=== PATIENT | female | born 1960 | race Caucasian/White ===

== ENCOUNTER → 2017-03-03 | Outpatient (CLI) | payer BC ==
--- NOTE | 2017-03-03 12:53 | CARD ---
APPROVED REPORT EXAM: Two-dimensional and M-mode echocardiogram with Doppler and color Doppler. Other Information Quality : Average Rhythm : NSR INDICATION Murmur 2D DIMENSIONS RVDd2.7 (2.9-3.5cm)Left Atrium(2D)2.7 (1.6-4.0cm) IVSd0.8 (0.7-1.1cm)Aortic Root(2D)2.5 (2.0-3.7cm) LVDd3.6 (3.9-5.9cm)LVOT Diameter2.0 (1.8-2.4cm) PWd0.8 (0.7-1.1cm)LVDs2.6 (2.5-4.0cm) FS (%) 28.2 %SV30.9 ml LVEF(%)55.4 (>50%) Aortic Valve AoV Peak Gerald.108.6cm/sAoV VTI21.3cm AO Peak GR.4.7mmHgLVOT Peak Gerald.84.8cm/s AO Mean GR.3mmHgAVA (VMAX)2.51cm2 Mitral Valve MV E Zebgzlgu66.6cm/sMV E Peak Gr.4mmHg MV DECEL [id number] A Szpqeeey67.3cm/s MV E Mean Gr.2mmHgMV [id number] E/A Ratio1.0MV A Mivlkfca66lc MVA (PHT)5.19cm2 Tricuspid Valve TR P. Ffucdtxc466hg/sRAP KSAICNYH1fnMh TR Peak Gr.60abYoCSBC21icXz Pulmonary Vein S1 Mszbztjh01.6cm/sD2 Sedveyab32.3cm/s LEFT VENTRICLE The left ventricle is normal size. There is normal left ventricular wall thickness. Left ventricle sy stolic function is normal. The Ejection Fraction is 55-60%. There is normal LV segmental wall motion. The left ventricular diastolic function and filling is normal for age. There is no ventricular septa l defect visualized. RIGHT VENTRICLE The right ventricle is normal size. The right ventricular systolic function is normal. ATRIA The left atrium size is normal. The right atrium size is normal. The interatrial septum is intact wit h no evidence for an atrial septal defect or patent foramen ovale as noted on 2-D or Doppler imaging. AORTIC VALVE The aortic valve is normal in structure and function. The aortic valve is trileaflet. Doppler and Col or Flow revealed no significant aortic regurgitation. There is no significant aortic valvular stenosi s. MITRAL VALVE The mitral valve leaflets are thickened. There is no mitral valve stenosis. Doppler and Color Flow re vealed no mitral valve regurgitation noted. TRICUSPID VALVE The tricuspid valve is normal in structure and function. Doppler and Color Flow revealed mild tricusp id regurgitation. The PA pressure was estimated at 30 mmHg. There is no tricuspid valve stenosis. PULMONIC VALVE The pulmonic valve is not well visualized. Doppler and Color Flow revealed no pulmonic valvular regur gitation. There is no pulmonic valvular stenosis. GREAT VESSELS The aortic root is normal in size. Normal pulmonary venous flow (Doppler). The IVC is normal in size and collapses <50% with inspiration. PERICARDIAL EFFUSION There is no evidence of significant pericardial effusion. Critical Notification Critical Value: No <Conclusion> Left ventricle systolic function is normal. The Ejection Fraction is 55-60%. There is normal LV segmental wall motion. Doppler and Color Flow revealed mild tricuspid regurgitation. The PA pressure was estimated at 30 mmH g.
--- NOTE | 2017-03-03 13:15 | RAD ---
APPROVED REPORT Test Type: Exercise Stress Nurse/Tech: Ezekiel Shannon R.N. Test Indications: Dyspnea on Exertion Cardiac History: see ehr Medications: see ehr Medical History: see ehr Resting ECG: SR Resting Heart Rate: 69 bpm Resting Blood Pressure: 121/83mmHg Pretest Chest Pain: None Nurse/Tech Notes Lungs CTA, S1, S2 Consent: The procedure was explained to the patient in lay terms. Informed consent was witnessed. Christopher eout was entered into [employer]. History and Stress Test performed by Ezekiel Shannon R.N. Pharm. Details Pharmacologic stress testing was performed using 0.4mg per 5ml of regadenoson given intravenously ove r 7-10 seconds. Stress Symptoms No chest pain or symptoms. POST EXERCISE Reason for Termination: Infusion complete Target HR: Yes Max HR: 140 bpm 100% of Maximum Predicted HR: 139 bpm Exercise duration: 8:25 min:sec, 3 Stage Exercise capacity: 10.0METs Max Blood Pressure: 194/91mmHg Blood Pressure response to exercise: Normal blood pressure response during stress. Chest Pain: No. Arrhythmia: No. ST Change: No. INTERPRETATION Stress EKG Conclusion: No acute changes were noted. Imaging Protocol IMAGE PROTOCOL: Rest Tc-99m/stress Tc-99m 1 day Rest: Stress: Viability: Radiopharm.Tc99m LwharedexAx99q Sestamibi Dose10.6mCi 34.8mCi Duration 15min. 10min. Img Date 03/03/2017 03/03/2017 Inj-Img Yixp31mev. 60min. Rest Admin Site:IV - Right AntecubitalAdministrator:ZOLTAN Betts Stress Admin Site: IV - Right AntecubitalAdministrator: Tracy Grant RT (R)(N) STRESS DATA End Diast. Vol.68.0mlAv. Heart Rate91.0bpm End Syst. Vol.12.0mlCO Index BSA0.0L/min Myocardial Azew693.0gEject. Urnperiy63.0% Stress Rates Pk. Fill Rate3.85EDV/secLVtime Pk. Fill 169.65msec Pk. Empty Rate4.41ESV/secLVtime Pk. Gkzrm929.32msec 08/17 Pk. Fill1.14EDV/sec Stress Scores Regional WT0.00Summed WT1.00 Regional WM0.00Summed WM0.00 The rest and stress images show normal perfusion, normal contraction and thickening. LV Perf. Quant 17 Seg. SSS0.00 17 Seg. SRS0.00 17 Seg. SDS0.00 Stress Defect Extent (% LAD)0.00Rest Defect Extent (% LAD)0.00Rev. Defect Extent (% LAD)0.00 Stress Defect Extent (% LCX) 0.00Rest Defect Extent (% LCX)0.00Rev. Defect Extent (% LCX)0.00 Stress Defect Extent (% RCA)0.00Rest Defect Extent (% RCA)0.00Rev. Defect Extent (% RCA)0.00 Stress Defect Extent (% KODI)0.00Rest Defect Extent (% KODI)0.00Rev. Defect Extent (% KODI)0.00 Other Information Quality:Good Risk Assessment: Low Risk Conclusion 1. No evidence of stress induced EKG changes. Average exercise capacity at 10.0 Mets 2. Normal perfusion at stress/rest. 3. Low risk study. EF > 70%
== END | disposition home or self-care (01) ==
LOC: NM 08:02
PROVIDERS: ATTEND Internal Medicine Cardiovascular Disease
DX: I07.1 Rheumatic tricuspid insufficiency (principal)
CPT/HCPCS: 78452; 93017; 93306; 96374; 96376; A9500

== ENCOUNTER → 2018-06-19 | Outpatient (CLI) | payer BC ==
[~2018-06-19] MED LIST: ALPR0.5T6 PO; ATOR20TA58 PO; CARV12.52 PO; GADOBUTROL 7.5 MMOL/7.5 ML VIAL IV ONE; HYDR12.58 PO; POLY17PO29 PO; PROAIR HFA8.5 GM INH
--- NOTE | 2018-06-19 15:50 | KCIC ---
MRI of the Brain without and with Contrast 06/19/2018 Clinical History: Frequent falls. Dizziness. Balance difficulty the last 3 weeks. Technique: Unenhanced T1-weighted sagittal and axial and FLAIR, T2-weighted, gradient echo and diffusion-weighted axial images of the brain were obtained. After the intravenous administration of 7 cc of Gadavist, enhanced T1-weighted axial and coronal images of the brain were obtained. Findings: No previous studies are available for comparison. The ventricles and sulci are within normal limits in size and configuration. Several small scattered areas of increased signal intensity are seen within the periventricular and subcortical white matter of both cerebral hemispheres on the FLAIR and T2-weighted images consistent most likely with areas of minimal small vessel ischemic disease. An old area of infarction is seen involving right superior cerebellar hemisphere. This measures 9 mm in greatest diameter. No acute parenchymal abnormality is seen. There is no MRI evidence of acute ischemia/infarction. No extra-axial fluid collection is seen. No area of abnormal contrast enhancement is noted. Mild mucosal thickening is seen scattered throughout the paranasal sinuses. Normal flow voids are seen within the major vascular structures surrounding the brain parenchyma. IMPRESSION: No acute parenchymal abnormality is seen. Electronically signed by: Laron Webster MD (06/19/2018 3:47 PM) [facility]
== END | disposition home or self-care (01) ==
LOC: KCIC MRI 12:02
PROVIDERS: ATTEND Nurse Practitioner Gerontology
DX: R29.6 Repeated falls (principal); I10 Essential (primary) hypertension; Z87.891 Personal history of nicotine dependence
CPT/HCPCS: 70553; A9585

== ENCOUNTER → 2018-07-03 | Outpatient (CLI) | payer BC ==
[~2018-07-03] MED LIST changes: -GADOBUTROL 7.5 MMOL/7.5 ML VIAL IV ONE
--- NOTE | 2018-07-03 15:35 | KCIC ---
MR of the right shoulder Indication: Right shoulder pain, decreased range of motion, lifting at work.. Technique: Standard multiplanar sequences are obtained. Findings: Artifact: Mild motion degradation but exam is diagnostic. Acromioclavicular joint: Mildly degenerative. No significant mass effect. Rotator cuff: * Supraspinatus-infraspinatus tendon: Intact * Subscapularis tendon: Intact * Muscle bulk: Within normal limits * Subacromial subdeltoid bursa: No significant effusion. Fluid: No significant glenohumeral effusion. Glenohumeral cartilage: No acute defect or advanced DJD. Labrum: No evidence of labral detachment. Biceps tendon: Intact Bones: No lesion or acute fracture. Soft tissue: Mild soft tissue edema at the posterior shoulder, mild intramuscular edema within the teres minor, particularly along the myotendinous junction. Impression: 1. Strain or contusion of the teres minor muscle along the myotendinous junction. 2. No evidence of rotator cuff tear. Electronically signed by: Ok Petit MD (07/03/2018 3:32 PM) [facility]
== END | disposition home or self-care (01) ==
LOC: KCIC MRI 13:36
PROVIDERS: ATTEND Family Medicine
DX: M19.011 Primary osteoarthritis, right shoulder (principal)
CPT/HCPCS: 73221

== ENCOUNTER → 2020-01-24 | Outpatient (CLI) | payer BC ==
[~2020-01-24] MED LIST changes: +ALBU2.5V8 INH; +CARV12.511 PO; -CARV12.52 PO; -PROAIR HFA8.5 GM INH
--- NOTE | 2020-01-24 15:54 | RAD ---
MRI Brain without contrast History:Left-sided facial droop Technique: Multiplanar, multisequential noncontrast MR imaging was performed of the brain. Comparison: None Findings: There is no evidence of recent infarct or cytotoxic edema. The ventricles, sulci, and cisterns are within normal limits in size and configuration. There is no significant midline shift, intraaxial mass effect, or focal abnormal extra-axial fluid collection. There is some similar small foci of T2 and FLAIR hyperintense signal such as of the left frontal deep white matter. 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 There is preservation of the major intracranial flow-voids at the skull base. The cerebellar tonsils are normal in location. There is no significant abnormality of the pineal gland or pituitary gland. Paranasal sinuses are overall aerated. The mastoid air cells are aerated. There is preserved marrow signal of the clivus. Impression: 1. There is no evidence of recent infarct or intracranial mass effect. A few small foci of T2 and FLAIR hyperintense signal of the supratentorial parenchyma are similar as may be seen with foci of nonspecific gliosis. Considerations would include sequela of chronic microvascular ischemic disease or white matter changes related to migraine headaches. However degree of findings may be seen in asymptomatic individuals. 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 Electronically signed by: Adrián Osorio MD (01/24/2020 3:51 PM) [id number]
--- NOTE | 2020-01-24 19:20 | RAD ---
BILATERAL DUPLEX CAROTID SONOGRAPHY History: Dizziness, lightheadedness, memory loss, hypertension, and facial droop. Technique: Duplex sonography of the cervical portion of both carotid arteries was performed. Real-time grayscale, color flow Doppler, and Doppler spectral waveform analysis is performed. Findings: Right side: Peak systolic flow velocity of the CCA is 64 cm/sec. Peak systolic flow velocity of the ICA is 75 cm/sec. The ICA/CCA ratio is 1.1. Peak end diastolic flow velocity of the ICA is 33 cm/sec. The peak systolic velocity of the ECA is 60 cm/sec. No significant plaque formation is identified. Left side: Peak systolic flow velocity of the CCA is 55 cm/sec. Peak systolic flow velocity of the ICA is 72 cm/sec. The ICA/CCA ratio is 1.3. Peak end diastolic flow velocity of the ICA is 34 cm/sec. Peak systolic flow velocity of the ECA is 53 cm/sec. No significant plaque formation is identified. Vertebral arteries: Bilateral vertebral arteries demonstrate antegrade flow. IMPRESSION: No hemodynamically significant internal carotid artery stenosis is identified. PQRS Compliance Statement - Stenosis calculations for CT, MR and conventional angiography are based upon measurement of the distal ICA diameter in accordance with the NASCET methodology. Stenosis calculations for carotid ultrasound studies are derived from validated velocity criteria which are known to correlate with the NASCET methodology. Electronically signed by: Miguel Oliveros MD (01/24/2020 7:16 PM) [facility]
== END ==
LOC: MRI 14:11
PROVIDERS: ATTEND Family Medicine
DX: I63.81 Other cerebral infarction due to occlusion or stenosis of small artery (principal)
CPT/HCPCS: 70551; 93880